=== PATIENT | male | born 1940 | race Caucasian/White ===

== ENCOUNTER → 2016-09-04 | Outpatient (CLI) | payer OTHER ==
[~2016-09-04] MED LIST: ALBUTEROL SULF 2.5 MG/0.5ML(0.5%) NEB SOLN ONE
== END | disposition home or self-care (01) ==
LOC: RT 08:36
PROVIDERS: ATTEND Internal Medicine
DX: J44.9 Chronic obstructive pulmonary disease, unspecified (principal)
CPT/HCPCS: 94060; 94640

== ENCOUNTER 2016-11-03 08:09 | Emergency (ER) | payer OTHER ==
[~2016-11-03] VITALS: Ht 177.8 cm; Wt 90.7 kg
[2016-11-03 09:23] LABS: Basophils # (auto) 0 uL; Basophils % (auto) 0.3 % (0.0-2.0); CONDITION Y; Eosinophils # (auto) 0.2 uL; Eosinophils % (auto) 2.6 % (0.0-7.0); Hemoglobin 14.5 g/dL (13.5-17.5); Lymphocytes # (auto) 1.8 uL; Lymphocytes % (auto) 24.9 % (10.0-50.0); Mean Corpuscular Hemoglobin 33.5 pg (28.0-32.0); Mean Corpuscular Hgb Conc. 33.8 g/dL (32.0-36.0); Mean Corpuscular Volume 99.2 fL (80.0-100.0); Mean Platelet Volume 7.9 fL (7.4-10.4); Monocytes # (auto) 0.4 uL; Monocytes % (auto) 6.3 % (0.0-12.0); Neutrophils # (auto) 4.7 uL; Neutrophils % (auto) 65.9 % (37.0-80.0); Platelet Count (auto) 285 10^3/uL (140-450); Red Cell Distribution Width 13.8 % (11.6-16.0); White Blood Cell 7.1 10^3/uL (4.4-10.8)
[2016-11-03 09:24] LABS: Albumin 3.8 g/dL (3.4-5.0); BUN/Creatinine Ratio 27.2; Bilirubin, Total 0.6 mg/dL (0.2-1.0); Calcium 9.4 mg/dL (8.5-10.1); Potassium 4.5 mmol/L (3.5-5.1); Total Protein 7.1 g/dL (6.4-8.2)
[2016-11-03 10:27] LABS: Magnesium 2.3 mg/dL (1.6-2.6)
[2016-11-03 10:27] LABS: Urine Bilirubin Negative (Negative); Urine Blood Negative /uL (Negative); Urine Color Yellow (Yellow); Urine Glucose Normal (Normal); Urine Ketone Negative (Negative); Urine Nitrite Negative (Negative); Urine RBC <1 /hpf (0 - 3); Urine Squamous Epithelial Cell FEW /hpf (<5); Urine Urobilinogen Normal (Negative); Urine pH 6.5 (5.0-8.0)
[2016-11-03 10:40] LABS: B-Type Natriuretic Peptide 27.2 pg/mL (0-100)
[2016-11-03 13:39] VITALS: BP 131/85
== END 2016-11-03 15:46 | disposition home or self-care (01) ==
LOC: ER 08:10
DX: R60.0 Localized edema (principal); N28.9 Disorder of kidney and ureter, unspecified; J44.9 Chronic obstructive pulmonary disease, unspecified; I12.9 Hypertensive chronic kidney disease with stage 1 through stage 4 chronic kidney disease, or unspecified chronic kidney disease; N18.9 Chronic kidney disease, unspecified
CPT/HCPCS: 36415; 80053; 81001; 83735; 83880; 84484; 85025; 85379; 93005; 93970

== ENCOUNTER → 2016-12-08 | Outpatient (CLI) | payer OTHER ==
[2016-12-08 07:22] LABS: Urine RBC None Seen /hpf (0 - 3)
[2016-12-08 07:31] LABS: Basophils # (auto) 0.1 uL; Basophils % (auto) 1.6 % (0.0-2.0); CONDITION Y; Eosinophils # (auto) 0.4 uL; Eosinophils % (auto) 4.9 % (0.0-7.0); Hemoglobin 14.2 g/dL (13.5-17.5); Lymphocytes # (auto) 2.3 uL; Lymphocytes % (auto) 29.4 % (10.0-50.0); Mean Corpuscular Hemoglobin 33.5 pg (28.0-32.0); Mean Corpuscular Hgb Conc. 33.8 g/dL (32.0-36.0); Mean Platelet Volume 7.7 fL (7.4-10.4); Monocytes # (auto) 0.6 uL; Monocytes % (auto) 7.4 % (0.0-12.0); Neutrophils # (auto) 4.5 uL; Neutrophils % (auto) 56.7 % (37.0-80.0); Platelet Count (auto) 280 10^3/uL (140-450); Red Cell Distribution Width 12.8 % (11.6-16.0); White Blood Cell 7.9 10^3/uL (4.4-10.8)
[2016-12-08 08:33] LABS: Urine Bilirubin Negative (Negative); Urine Blood Negative /uL (Negative); Urine Color Yellow (Yellow); Urine Glucose Normal (Normal); Urine Ketone Negative (Negative); Urine Nitrite Negative (Negative); Urine Squamous Epithelial Cell FEW /hpf (<5); Urine Urobilinogen Normal (Negative); Urine pH 5.5 (5.0-8.0)
[2016-12-08 12:40] LABS: Potassium 4.5 mmol/L (3.5-5.1)
[2016-12-08 13:12] LABS: Albumin 3.6 g/dL (3.4-5.0); BUN/Creatinine Ratio 27.5
[2016-12-08 13:15] LABS: Bilirubin, Total 0.6 mg/dL (0.2-1.0); Total Protein 6.8 g/dL (6.4-8.2)
== END | disposition home or self-care (01) ==
LOC: LAB 07:10
PROVIDERS: ATTEND Internal Medicine
DX: E78.2 Mixed hyperlipidemia (principal); I12.9 Hypertensive chronic kidney disease with stage 1 through stage 4 chronic kidney disease, or unspecified chronic kidney disease; N18.9 Chronic kidney disease, unspecified; E55.9 Vitamin D deficiency, unspecified; J44.9 Chronic obstructive pulmonary disease, unspecified
CPT/HCPCS: 36415; 80053; 80061; 81001; 82306; 84153; 85025

== ENCOUNTER → 2017-02-17 | Outpatient (CLI) | payer OTHER | END | disposition home or self-care (01) | LOC: XYW 09:19 | PROVIDERS: ATTEND Internal Medicine | DX: I10 Essential (primary) hypertension (principal); R06.02 Shortness of breath | CPT/HCPCS: 93306 ==

== ENCOUNTER 2018-04-06 19:13 | Inpatient (IN) | payer OTHER ==
[~2018-04-06] VITALS: Ht 175.3 cm; Wt 103.6 kg
[2018-04-06] VITALS (19 sets, daily range): BP systolic 99–149; BP diastolic 38–98
[2018-04-06 23:45] LABS: Basophils # (auto) 0.1 uL; Basophils % (auto) 0.7 % (0.0-2.0); Eosinophils # (auto) 0.6 uL; Eosinophils % (auto) 5.2 % (0.0-7.0); Hemoglobin 8.4 g/dL (13.5-17.5); Lymphocytes # (auto) 0.9 uL; Lymphocytes % (auto) 7.8 % (10.0-50.0); Mean Corpuscular Hemoglobin 33.9 pg (28.0-32.0); Mean Corpuscular Hgb Conc. 33.6 g/dL (32.0-36.0); Monocytes # (auto) 0.8 uL; Monocytes % (auto) 7.5 % (0.0-12.0); Neutrophils # (auto) 8.7 uL; Neutrophils % (auto) 78.8 % (37.0-80.0); Platelet Count (auto) 214 10^3/uL (140-450); Red Blood Cells 2.47 10^6/uL (4.5-5.90); Red Cell Distribution Width 27.6 % (11.8-14.3)
[2018-04-06 23:52] LABS: INR 1.57 (0.9-1.15); Partial Thromboplastin Time 38.6 sec (23.78-33.04); Prothrombin Time 16.4 sec (9.27-12.13)
[2018-04-06 23:53] LABS: Albumin 2.8 g/dL (3.4-5.0); BUN/Creatinine Ratio 10.8; Calcium 8.8 mg/dL (8.5-10.1); Potassium 4.1 mmol/L (3.5-5.1)
[2018-04-07] VITALS (93 sets, daily range): BP systolic 81–184; BP diastolic 38–122
[2018-04-07 00:05] LABS: Bilirubin, Total 26.5 mg/dL (0.2-1.0)
[2018-04-07 00:17] LABS: Total Protein 5.7 g/dL (6.4-8.2)
[2018-04-07] MEDS: PROPOFOL 100 ML IV SCH ×3 (02:04→11:49)
[2018-04-07] MEDS ORDERED: TPN PER PHARMACY 0 ML IV SCH (06:15)
[2018-04-07] MEDS ORDERED: TEMAZEPAM 15 MG CAP PO PRN (06:15)
[2018-04-07] MEDS ORDERED: NITROGLYCERIN 0.4 MG SL TAB SL PRN (06:15)
[2018-04-07] MEDS ORDERED: MORPHINE SULFATE 4 MG/ML SYR/VIAL IV PRN (06:15)
[2018-04-07] MEDS ORDERED: ACETAMINOPHEN 325 MG TAB PO PRN (06:15)
[2018-04-07] MEDS ORDERED: VANCOMYCIN PER PHARMACY 0 MG IV SCH (06:30)
[2018-04-07] MEDS ORDERED: LEVOFLOXACIN 250MG 50 ML IV ONE (08:00)
[2018-04-07] MEDS: ENOXAPARIN SOD 30 MG/0.3 ML SYRINGE SC SCH (10:04)
[2018-04-07] MEDS: ASPirin 81 mg TAB PO SCH (10:04)
[2018-04-07] MEDS: PANTOPRAZOLE 40 MG/10 ML VIAL IV SCH (10:05)
[2018-04-07 10:27] LABS: Albumin 2.5 g/dL (3.4-5.0); Calcium 8.9 mg/dL (8.5-10.1); Magnesium 1.9 mg/dL (1.6-2.6)
[2018-04-07] MEDS ORDERED: NOREPINEPHRINE 8 MG/250ML KIT 250 ML IV ONE (10:37)
[2018-04-07 10:39] LABS: Bilirubin, Total 23.3 mg/dL (0.2-1.0); Phosphorus 5.2 mg/dL (2.5-4.90); Pre Albumin 5.8 mg/dL (20.0-40.0)
[2018-04-07 10:42] LABS: BUN/Creatinine Ratio 10.9
[2018-04-07] MEDS ORDERED: PIPERACILLIN-TAZOB 3.375GM 100 ML IV ONE (10:45)
[2018-04-07] MEDS: NOREPINEPHRINE 8 MG/250ML KIT 250 ML IV SCH (10:45)
[2018-04-07 10:51] LABS: Total Protein 5.4 g/dL (6.4-8.2)
[2018-04-07] MEDS ORDERED: VANCOMYCIN 1,250 MG in D5W 5% 250 ML IV ONE (12:00)
[2018-04-07] MEDS ORDERED: LEVOFLOXACIN 500MG 100 ML IV ONE (13:00)
[2018-04-07] MEDS ORDERED: Jevity 1.2 Cal/Fiber 1 Liter GT SCH (15:00)
[2018-04-07] MEDS ORDERED: FLUCONAZOLE 200MG/100ML 100 ML IV ONE (15:00)
[2018-04-07] MEDS: MIDAZOLAM DRIP 50 mg/50mL 50 ML IV SCH (16:35)
[2018-04-07] MEDS: fentaNYL Drip 2500mCg/250mlNS 250 ML IV SCH (16:35)
[2018-04-07] MEDS ORDERED: DEXTROSE (50%) 50ML SYRG IV SCH (18:00)
[2018-04-07] MEDS: CALCIUM ACETATE 667 MG CAP GT SCH (18:00)
[2018-04-07] MEDS: ALBUTEROL SULF 2.5 MG/0.5ML(0.5%) NEB SOLN NEB SCH (18:22)
[2018-04-07] MEDS: IPRATROPIUM BROM 0.5 MG/2.5ML INH SOL NEB SCH (18:22)
[2018-04-07] MEDS: ACCU-CHEK COMFORT CURVE STRIP VI SCH (18:44)
[2018-04-07] MEDS: InsuLIN REG 1unit/0.01ml Soln (100units/ml) SC SCH (18:44)
[2018-04-07] MEDS ORDERED: PPN PER PHARMACY IV NR ×6 (20:00)
[2018-04-07] MEDS: PIPERACILLIN-TAZOB 2.25GM 50 ML IV SCH (20:11)
[2018-04-07 20:54] LABS: Urine Bacteria FEW /hpf (None Seen); Urine Blood 1+ /uL (Negative); Urine Mucus FEW (None Seen); Urine Specific Gravity 1.019 (1.001-1.035); Urine WBC 1800 /hpf (0 - 3); Urine WBC Clumps PRESENT /hpf (None Seen)
[2018-04-07 22:04] LABS: Hepatitis B Surface Antigen Negative (Negative)
[2018-04-07] MEDS: LINEZOLID 600MG/300ML 300 ML IV SCH (22:35)
[2018-04-08] VITALS (104 sets, daily range): BP systolic 69–140; BP diastolic 31–75
[2018-04-08] MEDS: IPRATROPIUM BROM 0.5 MG/2.5ML INH SOL NEB SCH ×4 (00:13→18:25)
[2018-04-08] MEDS: ALBUTEROL SULF 2.5 MG/0.5ML(0.5%) NEB SOLN NEB SCH ×4 (00:13→18:25)
[2018-04-08] MEDS: PIPERACILLIN-TAZOB 2.25GM 50 ML IV SCH ×4 (00:18→21:38)
[2018-04-08] MEDS: ACCU-CHEK COMFORT CURVE STRIP VI SCH ×4 (00:18→17:56)
[2018-04-08 04:17] LABS: Basophils # (auto) 0.1 uL
[2018-04-08 04:19] LABS: Basophils % (auto) 0.9 % (0.0-2.0); Eosinophils # (auto) 1.4 uL; Eosinophils % (auto) 10.1 % (0.0-7.0); Hemoglobin 8.3 g/dL (13.5-17.5); Lymphocytes # (auto) 1.2 uL; Lymphocytes % (auto) 8.2 % (10.0-50.0); Mean Corpuscular Hemoglobin 33.6 pg (28.0-32.0); Mean Corpuscular Volume 101.7 fL (80.0-100.0); Monocytes # (auto) 0.8 uL; Monocytes % (auto) 5.9 % (0.0-12.0); Neutrophils # (auto) 10.6 uL; Neutrophils % (auto) 74.9 % (37.0-80.0); Nucleated Red Blood Cells % 0.1 %; Platelet Count (auto) 203 10^3/uL (140-450); Red Blood Cells 2.46 10^6/uL (4.5-5.90); White Blood Cell 14.2 10^3/uL (4.4-10.8)
[2018-04-08 04:21] LABS: Red Cell Distribution Width 27.1 % (11.8-14.3)
[2018-04-08 04:25] LABS: Albumin 2.2 g/dL (3.4-5.0); Calcium 8.5 mg/dL (8.5-10.1); Potassium 3.8 mmol/L (3.5-5.1)
[2018-04-08 04:27] LABS: BUN/Creatinine Ratio 10.3
[2018-04-08 04:38] LABS: Bilirubin, Total 22.8 mg/dL (0.2-1.0); Total Protein 5.3 g/dL (6.4-8.2)
[2018-04-08 05:27] LABS: INR 1.51 (0.9-1.15); Prothrombin Time 15.8 sec (9.27-12.13)
[2018-04-08] MEDS ORDERED: EPOETIN ALFA 10,000 UNIT/1 ML VIAL IV ONE (05:45)
[2018-04-08] MEDS: InsuLIN REG 1unit/0.01ml Soln (100units/ml) SC SCH ×4 (06:15→17:57)
[2018-04-08] MEDS ORDERED: PIPERACILLIN-TAZOB 0.75 GM in D5W 5% 50 ML IV PRN (08:00)
[2018-04-08] MEDS: CALCIUM ACETATE 667 MG CAP GT SCH ×3 (08:00→17:57)
[2018-04-08] MEDS: FLUCONAZOLE 200MG/100ML 100 ML IV SCH (11:03)
[2018-04-08] MEDS: PANTOPRAZOLE 40 MG/10 ML VIAL IV SCH (11:03)
[2018-04-08] MEDS: ENOXAPARIN SOD 30 MG/0.3 ML SYRINGE SC SCH (11:04)
[2018-04-08] MEDS: NOREPINEPHRINE 8 MG/250ML KIT 250 ML IV SCH (11:04)
[2018-04-08] MEDS: ASPirin 81 mg TAB PO SCH (11:04)
[2018-04-08] MEDS: LINEZOLID 600MG/300ML 300 ML IV SCH ×2 (12:40→21:38)
[2018-04-08] MEDS: MIDAZOLAM DRIP 50 mg/50mL 50 ML IV SCH (12:49)
[2018-04-08] MEDS: fentaNYL Drip 2500mCg/250mlNS 250 ML IV SCH ×2 (15:49→17:56)
[2018-04-08] MEDS ORDERED: TPN PER PHARMACY IV NR ×7 (20:00)
[2018-04-09] VITALS (107 sets, daily range): BP systolic 87–145; BP diastolic 34–72
[2018-04-09] MEDS: ACCU-CHEK COMFORT CURVE STRIP VI SCH ×5 (00:03→23:39)
[2018-04-09] MEDS: InsuLIN REG 1unit/0.01ml Soln (100units/ml) SC SCH ×5 (00:05→23:39)
[2018-04-09] MEDS: IPRATROPIUM BROM 0.5 MG/2.5ML INH SOL NEB SCH ×4 (00:21→17:38)
[2018-04-09] MEDS: ALBUTEROL SULF 2.5 MG/0.5ML(0.5%) NEB SOLN NEB SCH ×4 (00:21→17:38)
[2018-04-09] MEDS: NOREPINEPHRINE 8 MG/250ML KIT 250 ML IV SCH ×3 (01:07→19:56)
[2018-04-09] MEDS: PROPOFOL 100 ML IV SCH (02:04)
[2018-04-09] MEDS: MIDAZOLAM DRIP 50 mg/50mL 50 ML IV SCH ×2 (02:45→15:24)
[2018-04-09 03:53] LABS: Basophils # (auto) 0.1 uL; Eosinophils # (auto) 1.6 uL; Red Blood Cells 2.46 10^6/uL (4.5-5.90)
[2018-04-09 03:56] LABS: Basophils % (auto) 0.5 % (0.0-2.0); Eosinophils % (auto) 9.7 % (0.0-7.0); Hematocrit 25.1 % (41.0-53.0); Hemoglobin 8.2 g/dL (13.5-17.5); Lymphocytes # (auto) 1.3 uL; Lymphocytes % (auto) 7.7 % (10.0-50.0); Mean Corpuscular Hemoglobin 33.3 pg (28.0-32.0); Mean Corpuscular Hgb Conc. 32.6 g/dL (32.0-36.0); Mean Corpuscular Volume 102.1 fL (80.0-100.0); Monocytes # (auto) 0.9 uL; Monocytes % (auto) 5.5 % (0.0-12.0); Neutrophils # (auto) 12.8 uL; Neutrophils % (auto) 76.6 % (37.0-80.0); Nucleated Red Blood Cells % 0.1 %; Platelet Count (auto) 200 10^3/uL (140-450); White Blood Cell 16.7 10^3/uL (4.4-10.8)
[2018-04-09 04:17] LABS: Albumin 1.9 g/dL (3.4-5.0); Calcium 8.7 mg/dL (8.5-10.1); Potassium 3.9 mmol/L (3.5-5.1)
[2018-04-09 04:18] LABS: Magnesium 1.9 mg/dL (1.6-2.6); Phosphorus 4.1 mg/dL (2.5-4.90)
[2018-04-09 04:22] LABS: Bilirubin, Total 20.5 mg/dL (0.2-1.0); Total Protein 5.1 g/dL (6.4-8.2)
[2018-04-09] MEDS: PIPERACILLIN-TAZOB 2.25GM 50 ML IV SCH (05:34)
[2018-04-09] MEDS: CALCIUM ACETATE 667 MG CAP GT SCH ×3 (09:35→18:49)
[2018-04-09] MEDS ORDERED: LEVOFLOXACIN 750MG 150 ML IV SCH (10:00)
[2018-04-09] MEDS: FLUCONAZOLE 200MG/100ML 100 ML IV SCH (10:00)
[2018-04-09] MEDS: PANTOPRAZOLE 40 MG/10 ML VIAL IV SCH (10:01)
[2018-04-09] MEDS: LINEZOLID 600MG/300ML 300 ML IV SCH ×2 (10:01→21:59)
[2018-04-09] MEDS: ASPirin 81 mg TAB PO SCH (10:02)
[2018-04-09] MEDS: ENOXAPARIN SOD 30 MG/0.3 ML SYRINGE SC SCH (10:03)
[2018-04-09] MEDS: MEROPENEM 500MG IVPB 50 ML IV SCH ×2 (13:36→21:59)
[2018-04-09] MEDS: fentaNYL Drip 2500mCg/250mlNS 250 ML IV SCH (15:25)
[2018-04-09] MEDS ORDERED: TPN PER PHARMACY IV NR ×14 (20:00)
[2018-04-10] VITALS (105 sets, daily range): BP systolic 74–134; BP diastolic 32–82
[2018-04-10] MEDS: IPRATROPIUM BROM 0.5 MG/2.5ML INH SOL NEB SCH ×4 (00:23→18:33)
[2018-04-10] MEDS: ALBUTEROL SULF 2.5 MG/0.5ML(0.5%) NEB SOLN NEB SCH ×4 (00:23→18:33)
[2018-04-10] MEDS: PROPOFOL 100 ML IV SCH (02:04)
[2018-04-10 03:56] LABS: Lymphocytes # (auto) 1.5 uL; Mean Corpuscular Volume 101.5 fL (80.0-100.0); Neutrophils % (auto) 75.9 % (37.0-80.0)
[2018-04-10 03:59] LABS: Basophils # (auto) 0 uL; Basophils % (auto) 0.2 % (0.0-2.0); Eosinophils # (auto) 1.3 uL; Eosinophils % (auto) 8.2 % (0.0-7.0); Hematocrit 23.5 % (41.0-53.0); Hemoglobin 7.8 g/dL (13.5-17.5); Lymphocytes % (auto) 9.5 % (10.0-50.0); Mean Corpuscular Hemoglobin 33.5 pg (28.0-32.0); Mean Corpuscular Hgb Conc. 33.1 g/dL (32.0-36.0); Monocytes % (auto) 6.2 % (0.0-12.0); Neutrophils # (auto) 12.1 uL; Nucleated Red Blood Cells % 0.1 %; Platelet Count (auto) 174 10^3/uL (140-450); Red Blood Cells 2.32 10^6/uL (4.5-5.90)
[2018-04-10 04:09] LABS: Albumin 1.7 g/dL (3.4-5.0); BUN/Creatinine Ratio 13.9; Calcium 8.9 mg/dL (8.5-10.1); Magnesium 1.9 mg/dL (1.6-2.6); Potassium 4.4 mmol/L (3.5-5.1)
[2018-04-10 04:12] LABS: Bilirubin, Total 19.7 mg/dL (0.2-1.0); Phosphorus 3.8 mg/dL (2.5-4.90)
[2018-04-10 04:24] LABS: Red Cell Distribution Width 26.3 % (11.8-14.3)
[2018-04-10] MEDS: NOREPINEPHRINE 8 MG/250ML KIT 250 ML IV SCH ×3 (05:00→23:00)
[2018-04-10] MEDS: MIDAZOLAM DRIP 50 mg/50mL 50 ML IV SCH ×2 (05:00→13:57)
[2018-04-10] MEDS: InsuLIN REG 1unit/0.01ml Soln (100units/ml) SC SCH ×3 (06:00→18:00)
[2018-04-10] MEDS: ACCU-CHEK COMFORT CURVE STRIP VI SCH ×3 (06:00→18:04)
[2018-04-10] MEDS: LINEZOLID 600MG/300ML 300 ML IV SCH ×2 (11:21→21:36)
[2018-04-10] MEDS: PANTOPRAZOLE 40 MG/10 ML VIAL IV SCH (11:22)
[2018-04-10] MEDS: FLUCONAZOLE 200MG/100ML 100 ML IV SCH (11:22)
[2018-04-10] MEDS: ENOXAPARIN SOD 30 MG/0.3 ML SYRINGE SC SCH (11:22)
[2018-04-10] MEDS: MEROPENEM 500MG IVPB 50 ML IV SCH ×2 (11:23→21:36)
[2018-04-10] MEDS: ASPirin 81 mg TAB PO SCH (11:23)
[2018-04-10] MEDS: CALCIUM ACETATE 667 MG CAP GT SCH ×3 (11:23→18:00)
[2018-04-10] MEDS: fentaNYL Drip 2500mCg/250mlNS 250 ML IV SCH (13:56)
[2018-04-10] MEDS ORDERED: TPN PER PHARMACY IV NR ×8 (20:00)
[2018-04-11] VITALS (102 sets, daily range): BP systolic 58–156; BP diastolic 25–86
[2018-04-11] MEDS: IPRATROPIUM BROM 0.5 MG/2.5ML INH SOL NEB SCH ×4 (00:12→18:28)
[2018-04-11] MEDS: ALBUTEROL SULF 2.5 MG/0.5ML(0.5%) NEB SOLN NEB SCH ×4 (00:13→18:28)
[2018-04-11] MEDS: ACCU-CHEK COMFORT CURVE STRIP VI SCH ×4 (00:16→18:10)
[2018-04-11] MEDS: PROPOFOL 100 ML IV SCH (02:04)
[2018-04-11 03:57] LABS: Basophils # (auto) 0.1 uL; Eosinophils # (auto) 1.3 uL; Hemoglobin 7.5 g/dL (13.5-17.5); Monocytes # (auto) 0.9 uL; Monocytes % (auto) 5.4 % (0.0-12.0); Platelet Count (auto) 171 10^3/uL (140-450)
[2018-04-11 04:03] LABS: Basophils % (auto) 0.6 % (0.0-2.0); Eosinophils % (auto) 7.9 % (0.0-7.0); Hematocrit 23.3 % (41.0-53.0); Lymphocytes # (auto) 1.5 uL; Lymphocytes % (auto) 9.1 % (10.0-50.0); Mean Corpuscular Hemoglobin 32.5 pg (28.0-32.0); Mean Corpuscular Hgb Conc. 32.2 g/dL (32.0-36.0); Neutrophils # (auto) 12.6 uL; Nucleated Red Blood Cells % 0.1 %; Red Blood Cells 2.31 10^6/uL (4.5-5.90); White Blood Cell 16.4 10^3/uL (4.4-10.8)
[2018-04-11 04:10] LABS: Albumin 1.5 g/dL (3.4-5.0); Calcium 9.5 mg/dL (8.5-10.1); Magnesium 2.1 mg/dL (1.6-2.6); Potassium 4.6 mmol/L (3.5-5.1)
[2018-04-11 04:15] LABS: BUN/Creatinine Ratio 15.4; Bilirubin, Total 17.9 mg/dL (0.2-1.0); Total Protein 4.9 g/dL (6.4-8.2)
[2018-04-11 04:26] LABS: Red Cell Distribution Width 26.8 % (11.8-14.3)
[2018-04-11 04:36] LABS: Phosphorus 3.6 mg/dL (2.5-4.90)
[2018-04-11] MEDS: MIDAZOLAM DRIP 50 mg/50mL 50 ML IV SCH ×2 (05:20→21:30)
[2018-04-11] MEDS: InsuLIN REG 1unit/0.01ml Soln (100units/ml) SC SCH ×4 (06:00→18:00)
[2018-04-11] MEDS: CALCIUM ACETATE 667 MG CAP GT SCH (08:00)
[2018-04-11] MEDS: NOREPINEPHRINE 8 MG/250ML KIT 250 ML IV SCH ×2 (08:11→12:57)
[2018-04-11] MEDS: fentaNYL Drip 2500mCg/250mlNS 250 ML IV SCH (08:12)
[2018-04-11] MEDS ORDERED: EPOETIN ALFA 10,000 UNIT/1 ML VIAL IV ONE (09:30)
[2018-04-11] MEDS ORDERED: SODIUM CHL 0.9% 1000 ML BAG XX ONE (09:30)
[2018-04-11] MEDS: ENOXAPARIN SOD 30 MG/0.3 ML SYRINGE SC SCH (10:00)
[2018-04-11] MEDS ORDERED: PHENYLEPHRINE INJ 20 MG in SODIUM CHL 0.9% 250 ML IV SCH (11:07)
[2018-04-11] MEDS ORDERED: PHENYLEPHRINE IV 250 ML IV ONE (11:21)
[2018-04-11] MEDS ORDERED: CIPROFLOXACIN 400MG/200ML 200 ML IV ONE (12:15)
[2018-04-11] MEDS ORDERED: CEFTAZIDIME AVIBACTAM IV ONE (12:15)
[2018-04-11] MEDS ORDERED: D5W IV ONE (12:15)
[2018-04-11] MEDS: PHENYLEPHRINE INJ 20 MG in D5W 5% 250 ML IV SCH ×2 (12:30→20:50)
[2018-04-11] MEDS ORDERED: MICAFUNGIN SODIUM 100 MG in SODIUM CHL 0.9% 100 ML IV ONE (12:30)
[2018-04-11] MEDS: PANTOPRAZOLE 40 MG/10 ML VIAL IV SCH (13:16)
[2018-04-11] MEDS: LINEZOLID 600MG/300ML 300 ML IV SCH ×2 (13:16→21:31)
[2018-04-11] MEDS: metroNIDAZOLE 500MG/100ML 100 ML IV SCH ×2 (14:36→21:31)
[2018-04-11 15:29] LABS: Hepatitis A Ab IgM Negative
[2018-04-11 15:34] LABS: Hepatitis B Core IgM Negative
[2018-04-11 15:35] LABS: Hepatitis C Antibody Negative (Negative)
[2018-04-11] MEDS: D5W IV SCH (17:16)
[2018-04-11] MEDS: CEFTAZIDIME AVIBACTAM IV SCH (17:16)
[2018-04-11] MEDS ORDERED: TPN PER PHARMACY IV NR ×8 (20:00)
[2018-04-11] MEDS ORDERED: CEFTAZIDIME AVIBACTAM IV SCH (20:00)
[2018-04-11] MEDS ORDERED: D5W IV SCH (20:00)
[2018-04-12] VITALS (109 sets, daily range): BP systolic 70–143; BP diastolic 28–108
[2018-04-12] MEDS: ACCU-CHEK COMFORT CURVE STRIP VI SCH ×4 (00:02→17:40)
[2018-04-12] MEDS: InsuLIN REG 1unit/0.01ml Soln (100units/ml) SC SCH ×4 (00:02→17:40)
[2018-04-12] MEDS: IPRATROPIUM BROM 0.5 MG/2.5ML INH SOL NEB SCH ×4 (00:07→18:11)
[2018-04-12] MEDS: ALBUTEROL SULF 2.5 MG/0.5ML(0.5%) NEB SOLN NEB SCH ×4 (00:07→18:11)
[2018-04-12] MEDS: NOREPINEPHRINE 8 MG/250ML KIT 250 ML IV SCH ×3 (01:32→16:59)
[2018-04-12] MEDS: PROPOFOL 100 ML IV SCH (02:04)
[2018-04-12 04:02] LABS: Basophils # (auto) 0.1 uL; Basophils % (auto) 0.5 % (0.0-2.0); Eosinophils # (auto) 0.9 uL; Eosinophils % (auto) 6.7 % (0.0-7.0); Hematocrit 23.9 % (41.0-53.0); Hemoglobin 7.7 g/dL (13.5-17.5); Lymphocytes # (auto) 1.5 uL; Lymphocytes % (auto) 10.5 % (10.0-50.0); Mean Corpuscular Hemoglobin 32.6 pg (28.0-32.0); Mean Corpuscular Hgb Conc. 32.1 g/dL (32.0-36.0); Mean Corpuscular Volume 101.8 fL (80.0-100.0); Monocytes % (auto) 6.9 % (0.0-12.0); Neutrophils # (auto) 10.5 uL; Neutrophils % (auto) 75.4 % (37.0-80.0); Platelet Count (auto) 160 10^3/uL (140-450); Red Blood Cells 2.35 10^6/uL (4.5-5.90); White Blood Cell 13.9 10^3/uL (4.4-10.8)
[2018-04-12 04:04] LABS: Red Cell Distribution Width 26.3 % (11.8-14.3)
[2018-04-12 04:15] LABS: INR 1.44 (0.9-1.15); Prothrombin Time 15.1 sec (9.27-12.13)
[2018-04-12 04:48] LABS: Albumin 1.4 g/dL (3.4-5.0); BUN/Creatinine Ratio 17.3; Calcium 9.4 mg/dL (8.5-10.1); Magnesium 2.3 mg/dL (1.6-2.6); Potassium 4.1 mmol/L (3.5-5.1)
[2018-04-12 04:53] LABS: Bilirubin, Total 16.4 mg/dL (0.2-1.0); Phosphorus 2.6 mg/dL (2.5-4.90); Pre Albumin 3.7 mg/dL (20.0-40.0); Total Protein 4.8 g/dL (6.4-8.2)
[2018-04-12] MEDS: D5W IV SCH ×2 (05:06→18:00)
[2018-04-12] MEDS: CEFTAZIDIME AVIBACTAM IV SCH ×2 (05:06→18:00)
[2018-04-12] MEDS: PHENYLEPHRINE INJ 20 MG in D5W 5% 250 ML IV SCH ×3 (05:06→21:40)
[2018-04-12] MEDS: metroNIDAZOLE 500MG/100ML 100 ML IV SCH ×3 (05:55→21:40)
[2018-04-12] MEDS: LINEZOLID 600MG/300ML 300 ML IV SCH ×2 (10:01→21:40)
[2018-04-12] MEDS: ENOXAPARIN SOD 30 MG/0.3 ML SYRINGE SC SCH (10:01)
[2018-04-12] MEDS: PANTOPRAZOLE 40 MG/10 ML VIAL IV SCH (10:01)
[2018-04-12] MEDS: MIDAZOLAM DRIP 50 mg/50mL 50 ML IV SCH (13:18)
[2018-04-12] MEDS: CIPROFLOXACIN 400MG/200ML 200 ML IV SCH (14:08)
[2018-04-12] MEDS: fentaNYL Drip 2500mCg/250mlNS 250 ML IV SCH (16:57)
[2018-04-12] MEDS: MICAFUNGIN SODIUM 100 MG in SODIUM CHL 0.9% 100 ML IV SCH (16:58)
[2018-04-12] MEDS ORDERED: PHENYLEPHRINE IV 250 ML IV ONE (18:53)
[2018-04-12] MEDS ORDERED: FAT EMULSION IV NR ×9 (20:00)
[2018-04-12] MEDS ORDERED: POTASSIUM ACETATE IV NR ×9 (20:00)
[2018-04-12] MEDS ORDERED: TPN PER PHARMACY IV NR ×10 (20:00)
[2018-04-12] MEDS ORDERED: SODIUM ACETATE IV NR ×9 (20:00)
[2018-04-12] MEDS ORDERED: [UNRECOGNIZED DRUG - OTHER] IV NR ×9 (20:00)
[2018-04-13] VITALS (74 sets, daily range): BP systolic 70–138; BP diastolic 28–91
[2018-04-13] MEDS: IPRATROPIUM BROM 0.5 MG/2.5ML INH SOL NEB SCH ×4 (00:14→18:21)
[2018-04-13] MEDS: ALBUTEROL SULF 2.5 MG/0.5ML(0.5%) NEB SOLN NEB SCH ×4 (00:14→18:21)
[2018-04-13] MEDS: PROPOFOL 100 ML IV SCH (02:04)
[2018-04-13 04:11] LABS: Basophils # (auto) 0.1 uL; Eosinophils % (auto) 7.9 % (0.0-7.0); Monocytes # (auto) 1.2 uL; Neutrophils # (auto) 10.7 uL
[2018-04-13 04:13] LABS: Potassium 4.1 mmol/L (3.5-5.1)
[2018-04-13 04:14] LABS: Basophils % (auto) 0.8 % (0.0-2.0); Eosinophils # (auto) 1.2 uL; Hematocrit 23.3 % (41.0-53.0); Hemoglobin 7.7 g/dL (13.5-17.5); Lymphocytes # (auto) 1.6 uL; Lymphocytes % (auto) 10.9 % (10.0-50.0); Mean Corpuscular Hemoglobin 33.3 pg (28.0-32.0); Mean Corpuscular Volume 100.7 fL (80.0-100.0); Monocytes % (auto) 8.3 % (0.0-12.0); Neutrophils % (auto) 72.1 % (37.0-80.0); Platelet Count (auto) 141 10^3/uL (140-450); Red Blood Cells 2.31 10^6/uL (4.5-5.90); White Blood Cell 14.8 10^3/uL (4.4-10.8)
[2018-04-13 04:19] LABS: % Iron Saturation 92.4 % (20-55)
[2018-04-13 04:37] LABS: Red Cell Distribution Width 26.2 % (11.8-14.3)
[2018-04-13 04:39] LABS: Albumin 1.4 g/dL (3.4-5.0); BUN/Creatinine Ratio 19.3; Bilirubin, Total 16.3 mg/dL (0.2-1.0); Calcium 10.4 mg/dL (8.5-10.1); Magnesium 2.2 mg/dL (1.6-2.6); Phosphorus 2.7 mg/dL (2.5-4.90)
[2018-04-13] MEDS: D5W IV SCH ×2 (05:14→17:22)
[2018-04-13] MEDS: CEFTAZIDIME AVIBACTAM IV SCH ×2 (05:14→17:22)
[2018-04-13] MEDS: InsuLIN REG 1unit/0.01ml Soln (100units/ml) SC SCH ×4 (05:36→18:00)
[2018-04-13] MEDS: ACCU-CHEK COMFORT CURVE STRIP VI SCH ×4 (05:36→18:13)
[2018-04-13] MEDS ORDERED: NOREPINEPHRINE BITARTRATE 2 ML IV ONE (05:43)
[2018-04-13] MEDS: metroNIDAZOLE 500MG/100ML 100 ML IV SCH ×3 (06:03→21:26)
[2018-04-13] MEDS: NOREPINEPHRINE 8 MG/250ML KIT 250 ML IV SCH ×3 (06:03→21:19)
[2018-04-13] MEDS: PHENYLEPHRINE INJ 20 MG in D5W 5% 250 ML IV SCH ×3 (06:10→22:50)
[2018-04-13] MEDS ORDERED: EPOETIN ALFA 10,000 UNIT/1 ML VIAL SC ONE (07:00)
[2018-04-13] MEDS: HEPARIN SODIUM (PORCINE) 5000 UNITS/ML 1ML VIAL SC SCH ×2 (10:00→21:27)
[2018-04-13] MEDS ORDERED: PHENYLEPHRINE IV 250 ML IV ONE (10:07)
[2018-04-13] MEDS: PANTOPRAZOLE 40 MG/10 ML VIAL IV SCH (10:28)
[2018-04-13] MEDS: LINEZOLID 600MG/300ML 300 ML IV SCH ×2 (10:29→21:26)
[2018-04-13] MEDS: MIDAZOLAM DRIP 50 mg/50mL 50 ML IV SCH (11:06)
[2018-04-13] MEDS: CIPROFLOXACIN 400MG/200ML 200 ML IV SCH (12:25)
[2018-04-13] MEDS: fentaNYL Drip 2500mCg/250mlNS 250 ML IV SCH (14:54)
[2018-04-13] MEDS: MICAFUNGIN SODIUM 100 MG in SODIUM CHL 0.9% 100 ML IV SCH (16:29)
[2018-04-13] MEDS ORDERED: FAT EMULSION IV NR ×10 (20:00)
[2018-04-13] MEDS ORDERED: SODIUM CHLORIDE IV NR ×10 (20:00)
[2018-04-13] MEDS ORDERED: SODIUM ACETATE IV NR ×10 (20:00)
[2018-04-13] MEDS ORDERED: [UNRECOGNIZED DRUG - OTHER] IV NR ×10 (20:00)
[2018-04-14] VITALS (76 sets, daily range): BP systolic 76–133; BP diastolic 30–54
[2018-04-14] MEDS: ALBUTEROL SULF 2.5 MG/0.5ML(0.5%) NEB SOLN NEB SCH ×4 (00:27→19:09)
[2018-04-14] MEDS: IPRATROPIUM BROM 0.5 MG/2.5ML INH SOL NEB SCH ×4 (00:27→19:09)
[2018-04-14] MEDS: NOREPINEPHRINE 8 MG/250ML KIT 250 ML IV SCH ×2 (01:24→11:26)
[2018-04-14] MEDS: MIDAZOLAM DRIP 50 mg/50mL 50 ML IV SCH ×2 (01:24→17:34)
[2018-04-14] MEDS: PROPOFOL 100 ML IV SCH (02:04)
[2018-04-14 03:58] LABS: Hemoglobin 7.1 g/dL (13.5-17.5); Lymphocytes # (auto) 1.3 uL; Neutrophils # (auto) 8.3 uL
[2018-04-14 04:01] LABS: Basophils # (auto) 0.1 uL; Basophils % (auto) 0.6 % (0.0-2.0); Eosinophils # (auto) 0.9 uL; Hematocrit 21.3 % (41.0-53.0); Lymphocytes % (auto) 11.3 % (10.0-50.0); Mean Corpuscular Hemoglobin 33.2 pg (28.0-32.0); Mean Corpuscular Hgb Conc. 33.3 g/dL (32.0-36.0); Mean Corpuscular Volume 99.7 fL (80.0-100.0); Monocytes % (auto) 8.4 % (0.0-12.0); Neutrophils % (auto) 71.7 % (37.0-80.0); Platelet Count (auto) 97 10^3/uL (140-450); Red Blood Cells 2.14 10^6/uL (4.5-5.90); White Blood Cell 11.6 10^3/uL (4.4-10.8)
[2018-04-14 04:02] LABS: Albumin 1.2 g/dL (3.4-5.0); Calcium 10.4 mg/dL (8.5-10.1); Magnesium 2.1 mg/dL (1.6-2.6)
[2018-04-14 04:05] LABS: BUN/Creatinine Ratio 21.4; Bilirubin, Total 14.4 mg/dL (0.2-1.0); Phosphorus 2.7 mg/dL (2.5-4.90); Total Protein 4.6 g/dL (6.4-8.2)
[2018-04-14] MEDS: CEFTAZIDIME AVIBACTAM IV SCH ×2 (05:30→17:34)
[2018-04-14] MEDS: D5W IV SCH ×2 (05:30→17:34)
[2018-04-14] MEDS: InsuLIN REG 1unit/0.01ml Soln (100units/ml) SC SCH ×5 (06:00→23:57)
[2018-04-14] MEDS: ACCU-CHEK COMFORT CURVE STRIP VI SCH ×5 (06:20→23:57)
[2018-04-14] MEDS: metroNIDAZOLE 500MG/100ML 100 ML IV SCH ×3 (06:22→21:51)
[2018-04-14] MEDS: PHENYLEPHRINE INJ 20 MG in D5W 5% 250 ML IV SCH ×3 (07:10→21:50)
[2018-04-14] MEDS: HEPARIN SODIUM (PORCINE) 5000 UNITS/ML 1ML VIAL SC SCH ×2 (10:13→22:00)
[2018-04-14] MEDS: LINEZOLID 600MG/300ML 300 ML IV SCH ×2 (10:13→21:51)
[2018-04-14] MEDS: PANTOPRAZOLE 40 MG/10 ML VIAL IV SCH (10:13)
[2018-04-14] MEDS: CIPROFLOXACIN 400MG/200ML 200 ML IV SCH (11:26)
[2018-04-14] MEDS: fentaNYL Drip 2500mCg/250mlNS 250 ML IV SCH (14:59)
[2018-04-14] MEDS: NOREPINEPHRINE BITARTRATE 32 MG in D5W 5% 218 ML IV SCH (15:55)
[2018-04-14] MEDS: MICAFUNGIN SODIUM 100 MG in SODIUM CHL 0.9% 100 ML IV SCH (17:35)
[2018-04-14] MEDS ORDERED: TPN PER PHARMACY IV NR ×9 (20:00)
[2018-04-15] VITALS (96 sets, daily range): BP systolic 71–131; BP diastolic 30–91
[2018-04-15] MEDS: PROPOFOL 100 ML IV SCH (02:04)
[2018-04-15] MEDS: ALBUTEROL SULF 2.5 MG/0.5ML(0.5%) NEB SOLN NEB SCH ×4 (02:45→17:59)
[2018-04-15] MEDS: IPRATROPIUM BROM 0.5 MG/2.5ML INH SOL NEB SCH ×4 (02:45→17:59)
[2018-04-15 04:05] LABS: Basophils # (auto) 0.1 uL; Basophils % (auto) 0.6 % (0.0-2.0); Eosinophils # (auto) 0.7 uL; Eosinophils % (auto) 5.1 % (0.0-7.0); Hematocrit 21.7 % (41.0-53.0); Hemoglobin 7.2 g/dL (13.5-17.5); Lymphocytes # (auto) 1.4 uL; Lymphocytes % (auto) 11.1 % (10.0-50.0); Mean Corpuscular Hemoglobin 33.1 pg (28.0-32.0); Mean Corpuscular Volume 100.1 fL (80.0-100.0); Monocytes % (auto) 7.7 % (0.0-12.0); Neutrophils # (auto) 9.9 uL; Neutrophils % (auto) 75.5 % (37.0-80.0); Nucleated Red Blood Cells % 0.1 %; Platelet Count (auto) 117 10^3/uL (140-450); Red Blood Cells 2.16 10^6/uL (4.5-5.90); White Blood Cell 13.1 10^3/uL (4.4-10.8)
[2018-04-15 04:06] LABS: Red Cell Distribution Width 25.8 % (11.8-14.3)
[2018-04-15 04:19] LABS: Albumin 1.2 g/dL (3.4-5.0); Calcium 10.9 mg/dL (8.5-10.1); Magnesium 2.1 mg/dL (1.6-2.6); Potassium 4.2 mmol/L (3.5-5.1)
[2018-04-15 04:20] LABS: % Iron Saturation 103.7 % (20-55)
[2018-04-15 04:25] LABS: BUN/Creatinine Ratio 22.9; Bilirubin, Total 14.8 mg/dL (0.2-1.0); Pre Albumin 4.9 mg/dL (20.0-40.0); Total Protein 4.7 g/dL (6.4-8.2)
[2018-04-15] MEDS: PHENYLEPHRINE INJ 80 MG in SODIUM CHL 0.9% 250 ML IV SCH (04:43)
[2018-04-15] MEDS: CEFTAZIDIME AVIBACTAM IV SCH ×2 (05:02→17:00)
[2018-04-15] MEDS: D5W IV SCH ×2 (05:02→17:00)
[2018-04-15] MEDS: InsuLIN REG 1unit/0.01ml Soln (100units/ml) SC SCH ×2 (05:39→12:00)
[2018-04-15] MEDS: ACCU-CHEK COMFORT CURVE STRIP VI SCH ×2 (05:39→12:10)
[2018-04-15] MEDS: metroNIDAZOLE 500MG/100ML 100 ML IV SCH ×3 (05:39→21:27)
[2018-04-15] MEDS: MIDAZOLAM DRIP 50 mg/50mL 50 ML IV SCH ×2 (06:37→14:59)
[2018-04-15] MEDS ORDERED: EPOETIN ALFA 10,000 UNIT/1 ML VIAL SC ONE (07:00)
[2018-04-15] MEDS ORDERED: SODIUM CHL 0.9% 1000 ML BAG XX ONE (07:00)
[2018-04-15 08:46] LABS: BUN/Creatinine Ratio 23.2; Calcium 11.1 mg/dL (8.5-10.1); Potassium 4.3 mmol/L (3.5-5.1)
[2018-04-15] MEDS: HEPARIN SODIUM (PORCINE) 5000 UNITS/ML 1ML VIAL SC SCH ×2 (10:00→21:27)
[2018-04-15] MEDS: VASOPRESSIN 50 UNITS in D5W 5% 247.5 ML IV SCH (10:15)
[2018-04-15] MEDS: PANTOPRAZOLE 40 MG/10 ML VIAL IV SCH (12:10)
[2018-04-15] MEDS: fentaNYL Drip 2500mCg/250mlNS 250 ML IV SCH (13:00)
[2018-04-15] MEDS: CIPROFLOXACIN 400MG/200ML 200 ML IV SCH (13:47)
[2018-04-15] MEDS: LINEZOLID 600MG/300ML 300 ML IV SCH ×2 (13:47→22:30)
[2018-04-15] MEDS ORDERED: MORPHINE SULFATE 4 MG/ML SYR/VIAL IV PRN (14:00)
[2018-04-15] MEDS: NOREPINEPHRINE BITARTRATE 32 MG in D5W 5% 218 ML IV SCH (15:44)
[2018-04-15] MEDS: MICAFUNGIN SODIUM 100 MG in SODIUM CHL 0.9% 100 ML IV SCH (16:30)
[2018-04-15] MEDS ORDERED: TPN PER PHARMACY IV NR ×8 (20:00)
[2018-04-16] VITALS (109 sets, daily range): BP systolic 75–145; BP diastolic 33–85
[2018-04-16] MEDS: IPRATROPIUM BROM 0.5 MG/2.5ML INH SOL NEB SCH ×4 (00:16→18:23)
[2018-04-16] MEDS: ALBUTEROL SULF 2.5 MG/0.5ML(0.5%) NEB SOLN NEB SCH ×4 (00:16→18:23)
[2018-04-16] MEDS: PROPOFOL 100 ML IV SCH (02:04)
[2018-04-16] MEDS: PHENYLEPHRINE INJ 80 MG in SODIUM CHL 0.9% 250 ML IV SCH (02:43)
[2018-04-16] MEDS: NOREPINEPHRINE BITARTRATE 32 MG in D5W 5% 218 ML IV SCH ×2 (02:45→22:42)
[2018-04-16 04:22] LABS: Basophils # (auto) 0.1 uL; Basophils % (auto) 0.9 % (0.0-2.0); Eosinophils # (auto) 0.2 uL; Eosinophils % (auto) 1.7 % (0.0-7.0); Hemoglobin 7.6 g/dL (13.5-17.5); Lymphocytes # (auto) 1.2 uL; Lymphocytes % (auto) 9.7 % (10.0-50.0); Mean Corpuscular Hemoglobin 32.9 pg (28.0-32.0); Mean Corpuscular Hgb Conc. 32.8 g/dL (32.0-36.0); Mean Corpuscular Volume 100.2 fL (80.0-100.0); Monocytes # (auto) 0.6 uL; Monocytes % (auto) 4.6 % (0.0-12.0); Neutrophils # (auto) 10.4 uL; Neutrophils % (auto) 83.1 % (37.0-80.0); Nucleated Red Blood Cells % 0.1 %; Platelet Count (auto) 105 10^3/uL (140-450); White Blood Cell 12.5 10^3/uL (4.4-10.8)
[2018-04-16 04:24] LABS: Red Cell Distribution Width 26.5 % (11.8-14.3)
[2018-04-16 04:39] LABS: Albumin 1.3 g/dL (3.4-5.0); BUN/Creatinine Ratio 21.7; Calcium 10.6 mg/dL (8.5-10.1); Potassium 3.9 mmol/L (3.5-5.1)
[2018-04-16 04:50] LABS: Bilirubin, Total 15.4 mg/dL (0.2-1.0)
[2018-04-16] MEDS: metroNIDAZOLE 500MG/100ML 100 ML IV SCH ×3 (05:04→21:18)
[2018-04-16] MEDS: CEFTAZIDIME AVIBACTAM IV SCH ×2 (05:04→18:00)
[2018-04-16] MEDS: D5W IV SCH ×2 (05:04→18:00)
[2018-04-16] MEDS: LINEZOLID 600MG/300ML 300 ML IV SCH ×2 (09:45→21:18)
[2018-04-16] MEDS: HEPARIN SODIUM (PORCINE) 5000 UNITS/ML 1ML VIAL SC SCH ×2 (09:46→21:17)
[2018-04-16] MEDS: PANTOPRAZOLE 40 MG/10 ML VIAL IV SCH (09:48)
[2018-04-16] MEDS ORDERED: PHENYLEPHRINE IV 250 ML IV ONE (10:59)
[2018-04-16] MEDS ORDERED: PHENYLEPHRINE HCL 10 MG/ML VL ONE (11:00)
[2018-04-16] MEDS: VASOPRESSIN 50 UNITS in D5W 5% 247.5 ML IV SCH (11:33)
[2018-04-16] MEDS: CIPROFLOXACIN 400MG/200ML 200 ML IV SCH (12:45)
[2018-04-16] MEDS: MIDAZOLAM DRIP 50 mg/50mL 50 ML IV SCH (14:59)
[2018-04-16] MEDS: MICAFUNGIN SODIUM 100 MG in SODIUM CHL 0.9% 100 ML IV SCH (16:24)
[2018-04-16] MEDS: fentaNYL Drip 2500mCg/250mlNS 250 ML IV SCH (17:15)
[2018-04-17] VITALS (110 sets, daily range): BP systolic 91–151; BP diastolic 36–72
[2018-04-17] MEDS: ALBUTEROL SULF 2.5 MG/0.5ML(0.5%) NEB SOLN NEB SCH ×4 (00:29→18:31)
[2018-04-17] MEDS: IPRATROPIUM BROM 0.5 MG/2.5ML INH SOL NEB SCH ×4 (00:29→18:32)
[2018-04-17] MEDS: PROPOFOL 100 ML IV SCH (02:04)
[2018-04-17] MEDS: PHENYLEPHRINE INJ 80 MG in SODIUM CHL 0.9% 250 ML IV SCH ×2 (02:12→09:26)
[2018-04-17] MEDS: VASOPRESSIN 50 UNITS in D5W 5% 247.5 ML IV SCH (02:12)
[2018-04-17 04:15] LABS: Eosinophils # (auto) 0.1 uL; Hemoglobin 7.2 g/dL (13.5-17.5); Red Blood Cells 2.14 10^6/uL (4.5-5.90); White Blood Cell 10.5 10^3/uL (4.4-10.8)
[2018-04-17 04:18] LABS: Basophils # (auto) 0.1 uL; Basophils % (auto) 0.5 % (0.0-2.0); Eosinophils % (auto) 0.9 % (0.0-7.0); Hematocrit 21.3 % (41.0-53.0); Lymphocytes # (auto) 1.2 uL; Lymphocytes % (auto) 11.9 % (10.0-50.0); Mean Corpuscular Hemoglobin 33.9 pg (28.0-32.0); Mean Corpuscular Hgb Conc. 34.1 g/dL (32.0-36.0); Mean Corpuscular Volume 99.4 fL (80.0-100.0); Monocytes # (auto) 0.4 uL; Monocytes % (auto) 3.4 % (0.0-12.0); Neutrophils # (auto) 8.7 uL; Neutrophils % (auto) 83.3 % (37.0-80.0); Nucleated Red Blood Cells % 0.1 %; Platelet Count (auto) 92 10^3/uL (140-450)
[2018-04-17 04:29] LABS: Albumin 1.4 g/dL (3.4-5.0); Calcium 11.2 mg/dL (8.5-10.1); Potassium 4.1 mmol/L (3.5-5.1); Red Cell Distribution Width 26.3 % (11.8-14.3)
[2018-04-17] MEDS: CEFTAZIDIME AVIBACTAM IV SCH ×2 (04:43→17:33)
[2018-04-17] MEDS: D5W IV SCH ×2 (04:43→17:33)
[2018-04-17 04:44] LABS: Bilirubin, Total 16.9 mg/dL (0.2-1.0); Total Protein 5.1 g/dL (6.4-8.2)
[2018-04-17] MEDS: metroNIDAZOLE 500MG/100ML 100 ML IV SCH ×3 (06:15→21:38)
[2018-04-17] MEDS: PANTOPRAZOLE 40 MG/10 ML VIAL IV SCH (10:14)
[2018-04-17] MEDS: LINEZOLID 600MG/300ML 300 ML IV SCH ×2 (10:15→21:38)
[2018-04-17] MEDS: HEPARIN SODIUM (PORCINE) 5000 UNITS/ML 1ML VIAL SC SCH ×2 (10:16→21:37)
[2018-04-17] MEDS ORDERED: ARTIFICIAL TEAR OPTH(EYE) OINT 3.5GM EACHEYE ONE (11:15)
[2018-04-17] MEDS: CIPROFLOXACIN 400MG/200ML 200 ML IV SCH (12:29)
[2018-04-17] MEDS: MIDAZOLAM DRIP 50 mg/50mL 50 ML IV SCH (14:59)
[2018-04-17] MEDS: fentaNYL Drip 2500mCg/250mlNS 250 ML IV SCH (14:59)
[2018-04-17] MEDS: NOREPINEPHRINE BITARTRATE 32 MG in D5W 5% 218 ML IV SCH (15:09)
[2018-04-17] MEDS: MICAFUNGIN SODIUM 100 MG in SODIUM CHL 0.9% 100 ML IV SCH (16:30)
[2018-04-17] MEDS: ARTIFICIAL TEAR OPTH(EYE) OINT 3.5GM EACHEYE SCH (21:38)
[2018-04-18] VITALS (105 sets, daily range): BP systolic 91–130; BP diastolic 37–72
[2018-04-18] MEDS: IPRATROPIUM BROM 0.5 MG/2.5ML INH SOL NEB SCH ×4 (00:04→18:40)
[2018-04-18] MEDS: ALBUTEROL SULF 2.5 MG/0.5ML(0.5%) NEB SOLN NEB SCH ×4 (00:04→18:40)
[2018-04-18] MEDS: PHENYLEPHRINE INJ 80 MG in SODIUM CHL 0.9% 250 ML IV SCH ×3 (01:00→16:24)
[2018-04-18] MEDS: VASOPRESSIN 50 UNITS in D5W 5% 247.5 ML IV SCH (01:38)
[2018-04-18] MEDS: PROPOFOL 100 ML IV SCH (02:04)
[2018-04-18] MEDS: D5W IV SCH ×2 (05:47→17:23)
[2018-04-18] MEDS: CEFTAZIDIME AVIBACTAM IV SCH ×2 (05:47→17:23)
[2018-04-18] MEDS: metroNIDAZOLE 500MG/100ML 100 ML IV SCH ×3 (06:00→22:30)
[2018-04-18] MEDS: LINEZOLID 600MG/300ML 300 ML IV SCH (10:18)
[2018-04-18] MEDS: HEPARIN SODIUM (PORCINE) 5000 UNITS/ML 1ML VIAL SC SCH ×2 (10:18→22:35)
[2018-04-18] MEDS: PANTOPRAZOLE 40 MG/10 ML VIAL IV SCH (10:18)
[2018-04-18] MEDS: CIPROFLOXACIN 400MG/200ML 200 ML IV SCH (12:27)
[2018-04-18] MEDS: NOREPINEPHRINE BITARTRATE 32 MG in D5W 5% 218 ML IV SCH ×2 (12:28→15:27)
[2018-04-18 14:17] LABS: BUN/Creatinine Ratio 25.8; Calcium 10.2 mg/dL (8.5-10.1); Potassium 4.4 mmol/L (3.5-5.1)
[2018-04-18] MEDS ORDERED: MORPHINE SULFATE 4 MG/ML SYR/VIAL IV PRN (14:30)
[2018-04-18] MEDS: fentaNYL Drip 2500mCg/250mlNS 250 ML IV SCH (14:59)
[2018-04-18] MEDS: MIDAZOLAM DRIP 50 mg/50mL 50 ML IV SCH (14:59)
[2018-04-18] MEDS: MICAFUNGIN SODIUM 100 MG in SODIUM CHL 0.9% 100 ML IV SCH (15:40)
[2018-04-18] MEDS ORDERED: VASOPRESSIN 20 UNIT/ML ONE (17:13)
[2018-04-18] MEDS: ARTIFICIAL TEAR OPTH(EYE) OINT 3.5GM EACHEYE SCH (22:00)
[2018-04-19] VITALS (104 sets, daily range): BP systolic 67–115; BP diastolic 32–72
[2018-04-19] MEDS: IPRATROPIUM BROM 0.5 MG/2.5ML INH SOL NEB SCH ×4 (00:10→19:03)
[2018-04-19] MEDS: ALBUTEROL SULF 2.5 MG/0.5ML(0.5%) NEB SOLN NEB SCH ×4 (00:10→19:03)
[2018-04-19] MEDS: PROPOFOL 100 ML IV SCH (02:04)
[2018-04-19] MEDS: PHENYLEPHRINE INJ 80 MG in SODIUM CHL 0.9% 250 ML IV SCH ×2 (04:07→13:46)
[2018-04-19] MEDS: CEFTAZIDIME AVIBACTAM IV SCH ×2 (05:00→17:00)
[2018-04-19] MEDS: D5W IV SCH ×2 (05:00→17:00)
[2018-04-19] MEDS: metroNIDAZOLE 500MG/100ML 100 ML IV SCH ×3 (06:00→22:10)
[2018-04-19] MEDS: VASOPRESSIN 50 UNITS in D5W 5% 247.5 ML IV SCH (07:22)
[2018-04-19] MEDS: NOREPINEPHRINE BITARTRATE 32 MG in D5W 5% 218 ML IV SCH ×2 (08:03→13:46)
[2018-04-19] MEDS: PANTOPRAZOLE 40 MG/10 ML VIAL IV SCH (09:33)
[2018-04-19] MEDS: HEPARIN SODIUM (PORCINE) 5000 UNITS/ML 1ML VIAL SC SCH ×2 (09:34→22:11)
[2018-04-19] MEDS: CIPROFLOXACIN 400MG/200ML 200 ML IV SCH (12:00)
[2018-04-19] MEDS ORDERED: SODIUM CHLORIDE 0.9% 1,000 ML IV ONE (12:45)
[2018-04-19] MEDS: fentaNYL Drip 2500mCg/250mlNS 250 ML IV SCH (14:02)
[2018-04-19] MEDS: MIDAZOLAM DRIP 50 mg/50mL 50 ML IV SCH (14:03)
[2018-04-19 15:34] LABS: Albumin 1.3 g/dL (3.4-5.0); Calcium 9.4 mg/dL (8.5-10.1); Potassium 5.2 mmol/L (3.5-5.1)
[2018-04-19 15:49] LABS: BUN/Creatinine Ratio 25.2; Bilirubin, Total 17.2 mg/dL (0.2-1.0); Total Protein 4.7 g/dL (6.4-8.2)
[2018-04-19] MEDS: MICAFUNGIN SODIUM 100 MG in SODIUM CHL 0.9% 100 ML IV SCH (16:00)
[2018-04-19] MEDS ORDERED: SODIUM BICARBONATE 8.4 % INJ 50ML VIAL IV ONE (16:15)
[2018-04-19] MEDS ORDERED: SODIUM BICARBONATE 8.4% INJ 50ML SYRINGE ONE (16:17)
[2018-04-19] MEDS: ARTIFICIAL TEAR OPTH(EYE) OINT 3.5GM EACHEYE SCH (22:11)
[2018-04-20] VITALS (55 sets, daily range): BP systolic 94–129; BP diastolic 26–104
[2018-04-20] MEDS: ALBUTEROL SULF 2.5 MG/0.5ML(0.5%) NEB SOLN NEB SCH ×3 (00:03→11:49)
[2018-04-20] MEDS: IPRATROPIUM BROM 0.5 MG/2.5ML INH SOL NEB SCH ×3 (00:03→11:49)
[2018-04-20] MEDS: PROPOFOL 100 ML IV SCH (02:04)
[2018-04-20] MEDS ORDERED: SODIUM BICARBONATE 8.4 % INJ 50ML VIAL IV ONE (04:30)
[2018-04-20] MEDS: CEFTAZIDIME AVIBACTAM IV SCH ×2 (05:24→16:20)
[2018-04-20] MEDS: D5W IV SCH ×2 (05:24→16:20)
[2018-04-20] MEDS: metroNIDAZOLE 500MG/100ML 100 ML IV SCH ×2 (06:11→13:48)
[2018-04-20] MEDS: NOREPINEPHRINE BITARTRATE 32 MG in D5W 5% 218 ML IV SCH ×2 (08:03→15:27)
[2018-04-20] MEDS: HEPARIN SODIUM (PORCINE) 5000 UNITS/ML 1ML VIAL SC SCH (10:00)
[2018-04-20] MEDS: PANTOPRAZOLE 40 MG/10 ML VIAL IV SCH (10:11)
[2018-04-20] MEDS: VASOPRESSIN 50 UNITS in D5W 5% 247.5 ML IV SCH (10:15)
[2018-04-20] MEDS: PHENYLEPHRINE INJ 80 MG in SODIUM CHL 0.9% 250 ML IV SCH (11:05)
[2018-04-20] MEDS ORDERED: VASOPRESSIN 20 UNIT/ML ONE (11:09)
[2018-04-20] MEDS: CIPROFLOXACIN 400MG/200ML 200 ML IV SCH (11:57)
[2018-04-20] MEDS: fentaNYL Drip 2500mCg/250mlNS 250 ML IV SCH (14:59)
[2018-04-20] MEDS: MIDAZOLAM DRIP 50 mg/50mL 50 ML IV SCH (14:59)
[2018-04-20] MEDS: MICAFUNGIN SODIUM 100 MG in SODIUM CHL 0.9% 100 ML IV SCH (15:50)
[2018-04-21 08:51] LABS: Hepatitis B Surface Antibody Negative
[2018-04-21 09:12] LABS: Hepatitis B Surface Antigen Negative (Negative)
== END 2018-04-20 19:20 | disposition expired | DRG 870 ==
LOC: ICU WEST 19:13
PROVIDERS: ADMIT Internal Medicine; ATTEND Internal Medicine
PROC: 5A1955Z Respiratory Ventilation, Greater than 96 Consecutive Hours (ICD-10-PCS; principal; 2018-04-06)
PROC: 5A1D70Z Performance of Urinary Filtration, Intermittent, Less than 6 Hours Per Day (ICD-10-PCS; 2018-04-08)
PROC: 5A1D70Z Performance of Urinary Filtration, Intermittent, Less than 6 Hours Per Day (ICD-10-PCS; 2018-04-11)
PROC: 5A1D70Z Performance of Urinary Filtration, Intermittent, Less than 6 Hours Per Day (ICD-10-PCS; 2018-04-13)
PROC: 5A1D70Z Performance of Urinary Filtration, Intermittent, Less than 6 Hours Per Day (ICD-10-PCS; 2018-04-15)
DX: A41.9 Sepsis, unspecified organism (principal); J96.00 Acute respiratory failure, unspecified whether with hypoxia or hypercapnia; K72.00 Acute and subacute hepatic failure without coma; N17.0 Acute kidney failure with tubular necrosis; E43 Unspecified severe protein-calorie malnutrition; G92 Toxic encephalopathy; K65.1 Peritoneal abscess; R65.21 Severe sepsis with septic shock; J15.1 Pneumonia due to Pseudomonas; R18.8 Other ascites; C18.9 Malignant neoplasm of colon, unspecified; E87.2 Acidosis; D68.9 Coagulation defect, unspecified; E87.1 Hypo-osmolality and hyponatremia; I13.0 Hypertensive heart and chronic kidney disease with heart failure and stage 1 through stage 4 chronic kidney disease, or unspecified chronic kidney disease; J44.0 Chronic obstructive pulmonary disease with (acute) lower respiratory infection; J98.11 Atelectasis; K56.7 Ileus, unspecified; N39.0 Urinary tract infection, site not specified; Z66 Do not resuscitate; Z51.5 Encounter for palliative care; I50.9 Heart failure, unspecified; L89.90 Pressure ulcer of unspecified site, unspecified stage; D64.9 Anemia, unspecified; E83.39 Other disorders of phosphorus metabolism; K66.8 Other specified disorders of peritoneum; K80.20 Calculus of gallbladder without cholecystitis without obstruction; Z99.2 Dependence on renal dialysis; Z93.0 Tracheostomy status; Z93.1 Gastrostomy status; Z93.3 Colostomy status; B96.5 Pseudomonas (aeruginosa) (mallei) (pseudomallei) as the cause of diseases classified elsewhere; E78.5 Hyperlipidemia, unspecified; E87.8 Other disorders of electrolyte and fluid balance, not elsewhere classified; I70.0 Atherosclerosis of aorta; N18.9 Chronic kidney disease, unspecified; Z87.891 Personal history of nicotine dependence; M47.9 Spondylosis, unspecified
CPT/HCPCS: 36415; 36600; 70450; 71045; 74176; 76856; 80048; 80053; 80074; 80202; 81001; 82040; 82140; 82728; 82805; 82962; 83540; 83550; 83605; 83735; 83880; 84100; 84132; 84478; 84484; 85025; 85610; 85730; 86703; 86706; 86803; 87040; 87070; 87077; 87081; 87086; 87088; 87186; 87205; 87340; 90935; 93306; 94002; 94003; 94640; A4605; A4618; A6257; C9113; G0378; J0714; J0885; J1450; J1642; J1815; J1956; J2185; J2248; J2250; J2543; J2704; J3490; J7060; J7131